=== PATIENT | male | born 1945 | race Caucasian/White ===

== ENCOUNTER 2024-11-21 10:46 | Emergency (ER) | payer MEDICARE, OTHER, SELFPAY ==
[2024-11-21 10:50] VITALS: BP 144/84
--- NOTE | 2024-11-21 12:23 | ED.GENMED ---
History of Present Illness
General
Chief Complaint: Musculo-Skeletal Complaint
Source: patient
Exam Limitations: none
Time Seen by Provider: 11/21/24 12:01
History of Present Illness
History of Present Illness:
79yo [id number] male presenting for evaluation of right wrist pain. 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 The following day, patient fell on his right
outstretched hand after falling off of a ladder. He has been having ongoing pain since that time. He was fastening his seatbelt today when he suddenly felt a sharp pain in the wrist and felt like 'something detached and popped.' He decided to
come to the ED for evaluation. No paresthesias. He does have an appointment with Kirsty regarding his wrist in a few weeks. Patient works in construction.
Phy Exam
General Physical Exam
General Presentation: well appearing and no apparent distress
General Skin: warm and dry
General Habitus: normal
General Mental: alert
Neurological Exam
Neurological Exam: alert
Nii Coma Scale
Eye Opening: Spontaneous
Verbal Response: Oriented
Motor Response: Obeys Commands
GCS Total Score: 15
Musculoskeletal Exam
Musculoskeletal Exam: other (R wrist: No deformity or skin changes. +Tenderness at base of thumb. Pain elicited with thumb extension. 2+ radial pulse and sensation intact. )
Skin Exam
Skin Exam: normal color and warm/dry
Psychiatric Exam
Psychiatric Exam: normal mood/affect
Course
Orders/Labs/Results
Orders:
Orders
11/21/24 10:56
CR Wrist - Right Min 3 Views Urgent
Comment:
Reason For Exam: Pain, swelling
11/21/24 12:02
Splints/Slings/Crut- Treatment ONCE
Location: Right
Type of Splint: Thimb Spica
Vital Signs
Initial and Last Documented VS:
Initial Vital Signs
Temp Pulse Resp BP Pulse Ox
97.9 F 69 16 144/84 98
11/21/24 10:50 11/21/24 10:50 11/21/24 10:50 11/21/24 10:50 11/21/24 10:50
Last Documented Vital Signs
Temp Pulse Resp BP Pulse Ox
97.9 F 69 16 144/84 98
11/21/24 10:50 11/21/24 10:50 11/21/24 10:50 11/21/24 10:50 11/21/24 12:24
MDM/Problems Addressed
Differential Diagnosis Includes:
79yoM here with R wrist pain x several weeks after a FOOSH injury. Here with worsening pain since fastening his seatbelt today. [place] something detach. No deformity noted on exam. There is tenderness to the base of the thumb. RUE is neurovascularly
intact. Differential diagnosis includes: fracture, sprain, dislocation
X-rays obtained which show an ossific fragment adjacent to the distal aspect of the scaphoid likely a mildly displaced fracture. Patient placed in thumb spica splint by diploma pharmacy technician. Neurovascular status unchanged after splint placement. Advised f/u with
orthopedics and patient discharged in stable condition.
*Pulse Oximetry
SaO2: 98
Oxygen Mode of Delivery: Room air
Patient hypoxic: no (98%)
*Critical Care Note
Total Time (30-74mins, 75-104mins- exclusive of procedures): Not Applicable
ED Attending Note
-
Portions of this chart may have been created with voice recognition software.� Occasional wrong word or��sound alike� substitutions may have occurred due to the inherent limitations of voice recognition software.
Discharge Plan
Departure
Patient Disposition: Home (Routine Discharge)
Date of Disposition: 11/21/24
Time of Disposition: 13:10
Patient with high blood pressure during this ER visit?: Yes
Discharge Problem:
Closed fracture of scaphoid of right wrist
Instructions: Wrist Fracture (DC), How to care for a splint
Referrals:
Ramesh Carlos MD [Active, Orthopedics]
Severiano Devi DO [Family Provider, Family Practice]
Activity Restrictions/Additional Instructions:
Keep splint in place and do not get wet until you are seen by orthopedics.
Interventions
Interventions:
*Risk Screen - Suicide Last Done: 11/21/24 11:35
*General Assessment Last Done: 11/21/24 10:50
*Neglect/Abuse Screening Last Done: 11/21/24 11:35
*ED- Fall Risk Assessment Last Done: 11/21/24 11:35
*ED COVID-19 Vaccine History Last Done: 11/21/24 11:35
*Nursing Disposition Last Done: 11/21/24 13:22
ED-Musculoskeletal Assessment Last Done: 11/21/24 11:35
Discharge Date and Time
Discharge Date/Time: 11/21/24 13:22
Print Language: MACEDONIAN
== END 2024-11-21 13:22 | disposition home or self-care (01) ==
LOC: EMR 10:46
PROVIDERS: EMERGENCY PHYSICIAN Emergency Medicine; FAMILY PHYSICIAN Family Medicine
DX: S62.001A Unspecified fracture of navicular [scaphoid] bone of right wrist, initial encounter for closed fracture (principal); W11.XXXA Fall on and from ladder, initial encounter
CPT/HCPCS: 29125; 99283; 73110

== ENCOUNTER → 2025-01-20 14:15 | Outpatient (REF) | payer MEDICARE, OTHER, SELFPAY | LOC: RAD 14:15 | PROVIDERS: ATTENDING PHYSICIAN Orthopaedic Surgery; FAMILY PHYSICIAN Family Medicine | DX: Z95.0 Presence of cardiac pacemaker (principal) | CPT/HCPCS: 71046 ==

== ENCOUNTER → 2025-01-30 13:39 | Outpatient (REF) | payer MEDICARE, OTHER, SELFPAY | LOC: MRI 13:39 | PROVIDERS: ATTENDING PHYSICIAN Orthopaedic Surgery; FAMILY PHYSICIAN Family Medicine | DX: M76.891 Other specified enthesopathies of right lower limb, excluding foot (principal) | CPT/HCPCS: 73721; 76014; 76015 ==